=== PATIENT | female | born 1990 | race Two or more races ===

== ENCOUNTER 2021-07-20 00:33 | Emergency (ER) | payer MEDICAID ==
[~2021-07-20] VITALS: Ht 165.1 cm; Wt 90.9 kg
[2021-07-20] MEDS ORDERED: CYCLOBENZAPRINE HCL 10 MG TABLET PO ONE (03:45)
[2021-07-20] MEDS ORDERED: KETOROLAC TROMETHAMINE 30 MG/ML VIAL IM ONE (03:45)
[2021-07-20 04:00] VITALS: BP 136/75
== END 2021-07-20 04:05 | disposition home or self-care (01) ==
LOC: EMS 00:35
DX: S29.012A Strain of muscle and tendon of back wall of thorax, initial encounter (principal); E11.9 Type 2 diabetes mellitus without complications; Z79.4 Long term (current) use of insulin; X58.XXXA Exposure to other specified factors, initial encounter; Y93.89 Activity, other specified; Y92.89 Other specified places as the place of occurrence of the external cause; Y99.8 Other external cause status
CPT/HCPCS: 96372; 99283; J1885